=== PATIENT | male | born 1965 | race Caucasian/White ===

== ENCOUNTER 2019-01-29 05:31 | Inpatient (IN) | payer OTHER ==
[2019-01-26 08:36] LABS: BASOPHILS % (AUTO) 0.6 % (0.0-2.0); EOSINOPHILS # (AUTO) 0.2 K/uL (0.0-0.4); EOSINOPHILS % (AUTO) 3.8 % (0.0-4.0); HEMATOCRIT 43.6 % (36-54); LYMPHOCYTES # (AUTO) 1.1 K/uL (1.0-5.5); LYMPHOCYTES % (AUTO) 22.5 % (20.5-51.5); MEAN CORPUSCULAR HEMOGLOBIN 30 pg (27-31); MEAN CORPUSCULAR HGB CONC 34 % (32-36); MEAN CORPUSCULAR VOLUME 89 fL (79.0-98.0); MONOCYTES # (AUTO) 0.3 K/uL (0.0-1.0); MONOCYTES % (AUTO) 5.9 % (1.7-9.3); NEUTROPHILS # (AUTO) 3.3 K/uL (1.8-7.7); NEUTROPHILS % (AUTO) 67.2 % (40.0-70.0); PLATELET COUNT (AUTO) 223 K/uL (130-430); RED BLOOD CELL COUNT(AUTO) 4.93 MIL/uL (4.2-6.2); RED CELL DISTRIBUTION WIDTH 14.6 % (9.0-15.0)
[2019-01-26 08:50] LABS: CREATININE 0.82 mg/dL (0.55-1.30); POTASSIUM 3.8 mmol/L (3.5-5.1)
[2019-01-26 08:55] LABS: INR 1.1 (0.80-1.20); PROTHROMBIN TIME 11.5 SECS (9.5-12.5)
[2019-01-26 09:00] LABS: CALCIUM 9.3 mg/dL (8.4-11.0)
[2019-01-26 09:02] LABS: BILIRUBIN,URINE NEGATIVE (NEGATIVE); BLOOD, URINE NEGATIVE (NEGATIVE); CLARITY/URINE CLEAR (CLEAR); COLOR,URINE YELLOW (YELLOW); GLUCOSE,URINE 2+ (NEGATIVE); KETONES,URINE NEGATIVE (NEGATIVE); LEUKOCYTE ESTERASE ,URINE NEGATIVE (NEGATIVE); NITRITE, URINE NEGATIVE (NEGATIVE); PROTEIN URINE NEGATIVE (NEGATIVE); UROBILINOGEN,URINE 0.2 (0.2-1.0)
[2019-01-26 09:32] LABS: BACTERIA,URINE FEW /HPF (None Seen); RBC,URINE 0-3 /HPF (0-3); WBC,URINE 0-3 /HPF (0-3)
[~2019-01-29] VITALS: Ht 177.8 cm; Wt 95.3 kg
[2019-01-29] MEDS ORDERED: ACETAMINOPHEN 500 MG TABLET ONE (06:53)
[2019-01-29] MEDS ORDERED: GABAPENTIN 300 MG CAPSULE ONE (06:54)
[2019-01-29] MEDS ORDERED: TRANEXAMIC ACID 650 MG TABLET ONE (06:54)
[2019-01-29] MEDS ORDERED: CELECOXIB 200 MG CAPSULE ONE (06:54)
[2019-01-29] MEDS ORDERED: oxyCODONE HCL 10 MG TAB.ER.12H PO ONE ×2 (06:54→07:00)
[2019-01-29] MEDS ORDERED: CELECOXIB 200 MG CAPSULE PO ONE (07:00)
[2019-01-29] MEDS ORDERED: CEFAZOLIN 2 GM IVPB PREMIX 50 ML IV ONE ×2 (07:00→07:20)
[2019-01-29] MEDS ORDERED: ceFAZolin SODIUM 2 GM in D5W 50 ML IV ONE (07:00)
[2019-01-29] MEDS ORDERED: TRANEXAMIC ACID 650 MG TABLET PO ONE (07:00)
[2019-01-29] MEDS ORDERED: ACETAMINOPHEN 500 MG TABLET PO ONE (07:00)
[2019-01-29] MEDS ORDERED: NACL 0.9% 1,000 ML IV ONE (07:00)
[2019-01-29] MEDS ORDERED: GABAPENTIN 300 MG CAPSULE PO ONE (07:00)
[2019-01-29] MEDS ORDERED: LIP20 PO (07:19)
[2019-01-29] MEDS ORDERED: MORPHINE SULFATE 10MG/10ML PF AMP EP ONE (07:20)
[2019-01-29] MEDS ORDERED: BUPIVACAINE /DEX PF 0.75% SPINAL 2 ML AMP INJ ONE (07:20)
[2019-01-29] MEDS ORDERED: PROPOFOL 200MG/ 20ML VIAL (DIPRIVAN) IV ONE (07:20)
[2019-01-29] MEDS ORDERED: TRANEXAMIC ACID 1,000 MG/10 ML VIAL IV ONE (07:20)
[2019-01-29] MEDS ORDERED: LR 1,000 ML IV.SOLN IV ONE (07:20)
[2019-01-29] MEDS ORDERED: ROPIVACAINE HCL/PF 5 MG/ML 0.5% 30 ML VIAL INJ ONE (07:20)
[2019-01-29] MEDS ORDERED: ROPIVACAINE HCL/PF 0.2% EPIDURAL 200 ML PLAST..BAG EP ONE (07:20)
[2019-01-29] MEDS ORDERED: NS 1000 ML IV.SOLN IV ONE (07:20)
[2019-01-29] MEDS ORDERED: MIDAZOLAM HCL 5 MG/5 ML VIAL IVP ONE (07:20)
[2019-01-29] MEDS ORDERED: POLYMYXIN 500,000/BACIT.10,000 UNITS in NS IRR 1 L IR ONE (07:30)
[2019-01-29] MEDS: ROPIVACAINE HCL 0.2% INJ SCH (07:52)
[2019-01-29] MEDS ORDERED: KETOROLAC TROMETHAMINE 60 MG/2 ML VIAL IM PRN (08:00)
[2019-01-29] MEDS ORDERED: MORPHINE SULFATE 10MG/10ML PF AMP SP SCH (08:00)
[2019-01-29] MEDS ORDERED: fentaNYL CITRATE/PF 100 MCG/2 ML AMP IVP PRN ×2 (08:00)
[2019-01-29] MEDS ORDERED: DIPHENHYDRAMINE INJ 50 MG/ML VIAL IVP PRN (08:00)
[2019-01-29] MEDS ORDERED: NALOXONE HCL 0.4 MG/ML AMP (NARCAN) IVP PRN ×2 (08:00)
[2019-01-29] MEDS ORDERED: NALBUPHINE HCL 10 MG/ML AMP IVP PRN ×2 (08:00)
[2019-01-29] MEDS ORDERED: ONDANSETRON HCL 4 MG/2 ML VIAL IVP PRN ×2 (08:00)
[2019-01-29] MEDS ORDERED: D5/0.45 NS 1,000 ML IV ONE (09:41)
[2019-01-29] MEDS ORDERED: BISACODYL 10 MG/SUPPOSITORY RC PRN (09:45)
[2019-01-29] MEDS ORDERED: ACETAMINOPHEN 325 MG TABLET PO PRN (09:45)
[2019-01-29] MEDS ORDERED: ATORVASTATIN 20 MG TABLET PO ONE (12:15)
[2019-01-29 15:16] VITALS: BP_SYST 132
[2019-01-29] MEDS ORDERED: DEXTROSE 50% JECT 50 ML DISP.SYRIN IVP PRN (16:30)
[2019-01-29] MEDS ORDERED: INSULIN REGULAR, HUMAN 100 UNITS/ML, 10 ML VIAL (humuLIN R) SUBCUT PRN (16:30)
[2019-01-29 16:52] VITALS: BP_SYST 132
[2019-01-29] MEDS: CEFAZOLIN 1 GM IVPB PREMIX 50 ML IV SCH ×2 (17:17→22:26)
[2019-01-29] MEDS: RIVAROXABAN 10 MG TABLET PO SCH (17:29)
[2019-01-29 20:00] VITALS: BP_SYST 136
[2019-01-29] MEDS: MORPHINE SULFATE 10 MG/ML VIAL IM PRN (21:02)
[2019-01-30] VITALS (7 sets, daily range): BP systolic 114–182
[2019-01-30] MEDS: HYDROcodone/ACETAMIN 7.5-325 MG TAB PO PRN ×3 (01:36→14:14)
[2019-01-30] MEDS: DIPHENHYDRAMINE INJ 50 MG/ML VIAL IVP PRN ×2 (01:37→20:17)
[2019-01-30 06:24] LABS: BASOPHILS % (AUTO) 0.2 % (0.0-2.0); EOSINOPHILS % (AUTO) 0.4 % (0.0-4.0); HEMATOCRIT 31.6 % (36-54); HEMOGLOBIN 10.9 g/dL (14.0-18.0); LYMPHOCYTES # (AUTO) 0.9 K/uL (1.0-5.5); LYMPHOCYTES % (AUTO) 10.4 % (20.5-51.5); MEAN CORPUSCULAR HEMOGLOBIN 31 pg (27-31); MEAN CORPUSCULAR HGB CONC 35 % (32-36); MEAN CORPUSCULAR VOLUME 89 fL (79.0-98.0); MONOCYTES # (AUTO) 0.7 K/uL (0.0-1.0); MONOCYTES % (AUTO) 8.6 % (1.7-9.3); NEUTROPHILS # (AUTO) 6.7 K/uL (1.8-7.7); NEUTROPHILS % (AUTO) 80.4 % (40.0-70.0); PLATELET COUNT (AUTO) 179 K/uL (130-430); RED BLOOD CELL COUNT(AUTO) 3.56 MIL/uL (4.2-6.2); RED CELL DISTRIBUTION WIDTH 14.2 % (9.0-15.0); WHITE BLOOD COUNT (AUTO) 8.3 K/uL (4.8-10.8)
[2019-01-30 06:37] LABS: CALCIUM 7.7 mg/dL (8.4-11.0); CREATININE 0.77 mg/dL (0.55-1.30); POTASSIUM 3.9 mmol/L (3.5-5.1); TOTAL BILIRUBIN 1.2 mg/dL (0.0-1.0)
[2019-01-30] MEDS: ROPIVACAINE HCL 0.2% INJ SCH (07:52)
[2019-01-30] MEDS: MORPHINE SULFATE 10 MG/ML VIAL IM PRN (08:29)
[2019-01-30] MEDS: ATORVASTATIN 20 MG TABLET PO SCH (09:04)
[2019-01-30] MEDS: MORPHINE 4 MG/ML INJ. SYRINGE IVP PRN ×3 (13:09→23:01)
[2019-01-30] MEDS: OXYCODONE/ACETAMINOPHEN *10*mg/325 mg TABLET PO PRN ×2 (16:36→21:53)
[2019-01-30] MEDS: RIVAROXABAN 10 MG TABLET PO SCH (16:56)
[2019-01-31 00:42] VITALS: BP_SYST 153
[2019-01-31] MEDS: MORPHINE 4 MG/ML INJ. SYRINGE IVP PRN ×4 (04:53→22:32)
[2019-01-31] MEDS: ROPIVACAINE HCL 0.2% INJ SCH (07:52)
[2019-01-31 08:01] VITALS: BP_SYST 149
[2019-01-31] MEDS: ATORVASTATIN 20 MG TABLET PO SCH (08:27)
[2019-01-31] MEDS: OXYCODONE/ACETAMINOPHEN *10*mg/325 mg TABLET PO PRN (08:27)
[2019-01-31] MEDS: cefTRIAXone 1 GM IVPB PREMIX 50 ML IV SCH (10:20)
[2019-01-31] MEDS ORDERED: RIVA10TA PO (12:22)
[2019-01-31] MEDS ORDERED: HYDR-4274 PO (12:23)
[2019-01-31 13:11] VITALS: BP_SYST 127
[2019-01-31 16:48] VITALS: BP_SYST 127
[2019-01-31] MEDS: RIVAROXABAN 10 MG TABLET PO SCH (17:53)
[2019-01-31] MEDS: HYDROcodone/ACETAMIN 7.5-325 MG TAB PO PRN (18:25)
[2019-01-31 20:00] VITALS: BP_SYST 133
[2019-02-01 00:23] VITALS: BP_SYST 134
[2019-02-01] MEDS: OXYCODONE/ACETAMINOPHEN *10*mg/325 mg TABLET PO PRN (04:01)
[2019-02-01 07:41] VITALS: BP_SYST 136
[2019-02-01] MEDS: ATORVASTATIN 20 MG TABLET PO SCH (08:10)
[2019-02-01] MEDS: cefTRIAXone 1 GM IVPB PREMIX 50 ML IV SCH (08:57)
[2019-02-01 09:12] VITALS: BP_SYST 136
== END 2019-02-01 10:12 | disposition home health service (06) | DRG 470 ==
LOC: SMU 05:31
PROVIDERS: ADMIT Orthopaedic Surgery; ATTEND Orthopaedic Surgery
PROC: 3E0T3BZ Introduction of Anesthetic Agent into Peripheral Nerves and Plexi, Percutaneous Approach (ICD-10-PCS; 2019-01-29)
PROC: 0SRD0J9 Replacement of Left Knee Joint with Synthetic Substitute, Cemented, Open Approach (ICD-10-PCS; principal; 2019-01-29 07:30)
DX: M17.12 Unilateral primary osteoarthritis, left knee (principal); E11.9 Type 2 diabetes mellitus without complications; I10 Essential (primary) hypertension; Z79.4 Long term (current) use of insulin; Z83.3 Family history of diabetes mellitus
CPT/HCPCS: 36415; 71045; 71046-TC; 80048; 80053; 81000-TC; 82962; 83036; 85025; 85610-TC; 85730-TC; 87081; 88305; 88311; 93005; 97039; 97116-GP; 97530-GP; C1713; C1776; J0690; J0696; J1200; J1815; J1885; J2250; J2270; J2274; J2704; J2795; J3490; J7030; J7060; J7120

== ENCOUNTER 2023-11-21 11:03 | Day surgery (SDC) | payer OTHER ==
[~2023-11-21 11:03] MED LIST: HYDR-4274 PO; LIP20 PO; RIVA10TA PO
[2023-11-21] MEDS ORDERED: MIDAZOLAM HCL 5 MG/5 ML VIAL ONE ×2 (11:37→12:12)
[2023-11-21] MEDS ORDERED: MEPERIDINE 100 MG INJ. 100 MG/ML VIAL ONE (11:37)
[2023-11-21 14:05] VITALS: O2SAT 100
[2023-11-21 14:18] VITALS: BP_SYST 106; PULSE 78; RESP 19
== END 2023-11-21 13:27 | disposition home or self-care (01) ==
LOC: SDS 11:03 → SMU 11:08 → SDS 13:27
PROVIDERS: ATTEND Internal Medicine Gastroenterology
DX: Z12.11 Encounter for screening for malignant neoplasm of colon (principal); D12.8 Benign neoplasm of rectum; B18.2 Chronic viral hepatitis C; K57.30 Diverticulosis of large intestine without perforation or abscess without bleeding; K64.8 Other hemorrhoids; E11.9 Type 2 diabetes mellitus without complications; E78.5 Hyperlipidemia, unspecified; Z96.659 Presence of unspecified artificial knee joint; Z98.890 Other specified postprocedural states; Z79.4 Long term (current) use of insulin; Z79.899 Other long term (current) drug therapy; Z80.0 Family history of malignant neoplasm of digestive organs
CPT/HCPCS: 45385; 99152; 82948; 88305; 99153; G0378; J2250; J2175; 45384